=== PATIENT | male | born 1960 | race Caucasian/White ===

== ENCOUNTER 2024-04-18 13:43 | Emergency (ER) | payer MEDICARE ==
[2024-04-18] MEDS ORDERED: Indomethacin 25 MG Cap PO ONE (14:00)
[2024-04-18] MEDS: Indomethacin 25 MG Cap PO SCH (15:05)
== END 2024-04-18 15:16 | disposition home or self-care (01) ==
LOC: MW.ED 13:43
DX: M10.9 Gout, unspecified (principal); Z79.899 Other long term (current) drug therapy; Z75.8 Other problems related to medical facilities and other health care
CPT/HCPCS: 99283; A9270-GY

== ENCOUNTER 2024-05-28 13:25 | Emergency (ER) | payer MEDICARE ==
[2024-05-28] MEDS ORDERED: Sodium Chloride 0.9% 1,000 ML IV SCH (13:30)
[2024-05-28 13:43] LABS: BASOPHILS ABSOLUTE AUTO 0.05 K/uL (0.00-0.20); BASOPHILS PERCENT AUTO 0.3 % (0.0-1.0); EOSINOPHILS ABSOLUTE AUTO 0.06 K/uL (0.00-0.45); EOSINOPHILS PERCENT AUTO 0.4 % (0.0-6.0); HEMATOCRIT 47.4 % (42.0-52.0); IMMATURE GRAN ABSOLUTE AUTO 0.05 K/uL (0.00-0.05); IMMATURE GRAN PERCENT AUTO 0.3 % (0.0-0.4); LYMPHOCYTES ABSOLUTE AUTO 1.21 K/uL (1.00-4.80); LYMPHOCYTES PERCENT AUTO 8.1 % (24.0-44.0); MEAN CORPUSCULAR HEMOGLOBIN 30.1 pg (28.0-32.0); MEAN CORPUSCULAR HGB CONC 33.8 g/dL (32.0-36.0); MEAN CORPUSCULAR VOLUME 89.1 fL (83.0-99.0); MEAN PLATELET VOLUME 9.7 fL (9.4-12.4); MONOCYTES ABSOLUTE AUTO 1.02 K/uL (0.00-0.80); MONOCYTES PERCENT AUTO 6.8 % (0.0-8.0); NEUTROPHILS ABSOLUTE AUTO 12.57 K/uL (1.80-7.70); NEUTROPHILS PERCENT AUTO 84.1 % (41.0-71.0); PLATELET COUNT,PLT 274 K/uL (150-400); RED BLOOD CELL COUNT 5.32 M/uL (4.52-5.90); WHITE BLOOD CELL COUNT,WBC 14.96 K/uL (3.9-11.3)
[2024-05-28 13:53] LABS: INR 1.05 (0.86-1.11)
[2024-05-28] MEDS: Aspirin 81 MG Tab.Chew PO ONE (13:55)
[2024-05-28] MEDS: Ketamine 500 mg/10 ML MDV IV PRN (14:06)
[2024-05-28] MEDS: Enoxaparin 150 MG/1 ML Syringe SUBCUT ONE (14:07)
[2024-05-28 14:17] LABS: A/G RATIO 1.2 (0.9-1.6); ALANINE AMINOTRANSFERASE,ALT 7 IU/L (14-63); ALBUMIN 4.1 g/dL (3.4-5.0); ALKALINE PHOSPHATASE 77 U/L (46-116); ASPARTATE AMNIOTRANSFERASE,AST 27 IU/L (15-37); BILIRUBIN TOTAL 0.7 mg/dL (0.2-1.0); BLOOD UREA NITROGEN,BUN 28 mg/dL (7.0-18.0); CALCIUM 9.1 mg/dL (8.5-10.1); CARBON DIOXIDE,CO2 23.4 mmol/L (21.0-32.0); CHLORIDE,CL 102 mmol/L (98-107); CREATININE 1.4 mg/dL (0.8-1.3); GLUCOSE RANDOM 162 mg/dL (74-106); LIPASE 65 U/L (16-77); MAGNESIUM 1.9 mg/dL (1.8-2.4); PRO B-TYPE NATRIUR PEPT,BNPPRO 727 pg/mL (0-125); PROTEIN TOTAL,TP 7.5 g/dL (6.4-8.2); SODIUM,NA 140 mmol/L (136-148)
[2024-05-28 14:21] LABS: ESTIMATED GFR 55 mL/min (>60)
[2024-05-29] MEDS: Ketamine 500 mg/10 ML MDV ONE (07:27)
== END 2024-05-28 15:36 ==
LOC: MW.ED 13:25
DX: I47.20 Ventricular tachycardia, unspecified (principal); R55 Syncope and collapse; R07.89 Other chest pain; R09.02 Hypoxemia; I10 Essential (primary) hypertension; Z95.1 Presence of aortocoronary bypass graft; Z79.899 Other long term (current) drug therapy
CPT/HCPCS: 36415; 71045; 80053; 83690; 83735; 83880; 84484; 85025; 85610; 92960; 93005; 96365; 96366; 96372; 99285; A9270; J0282; J1650; J3490; 93010; 99291